=== PATIENT | female | born 1955 | race Caucasian/White ===

== ENCOUNTER → 2022-10-07 10:35 | Outpatient (CLI) | payer MEDICARE, BC, SELFPAY ==
--- NOTE | ~2022-10-07 | XR_ITS ---
EXAMINATION:XR cervical spine 4-5V DATE: 10/07/2022 11:27 INDICATION: Neck pain TECHNIQUE: AP, lateral in neutral, flexion, extension, lateral swimmers and odontoid views of the cer vical spine are provided. COMPARISON: MRI from today FINDINGS: There is 1 mm of retrolisthesis of C3 on C4 and 1 mm of anterolisthesis of C4 on C5. No hyp ermobility is noted with flexion or extension. The odontoid process is intact. No fracture is identif ied. The vertebral body heights are maintained. There is mild loss of intervertebral disc space heigh t at C5-6 and C6-7. There is multilevel moderate to severe facet and uncovertebral joint osteoarthrit is. Prevertebral soft tissues are normal. IMPRESSION: 1. Mild to moderate cervical spondylosis without acute findings. Reviewed, dictated and finalized at location L. SMISSION OPERATOR
--- NOTE | ~2022-10-07 | MR_ITS ---
MRI of the cervical spine Clinical History: Spondylosis Technique: Axial T2-weighted and gradient images, and sagittal T1-weighted, T2-weighted, and STIR yoel ges were acquired. Findings: There is no fracture or subluxation of the cervical spine. Vertebral bodies maintain normal height and alignment. No suspicious bone marrow signal abnormality seen. At C2-C3, there is no disc bulge or herniation. There is mild right facet arthropathy. There is proba ble mild right neural foraminal narrowing. Left neural foramen preserved. No spinal canal stenosis or cord compression. At C3-C4, there is minimal disc osteophyte complex. There is probable bilateral neural foraminal narr owing. No spinal canal stenosis or cord compression. At C4-C5, there is minimal disc bulge. There is probable mild bilateral neural foraminal narrowing. N o spinal canal stenosis or cord compression. At C5-C6, there is minimal disc bulge. There is probable bilateral neural foraminal narrowing without kavon canal stenosis or cord compression. At C6-C7, there is minimal disc bulge. No kavon spinal canal stenosis or cord compression. There is p robable bilateral neural foraminal narrowing. Paravertebral soft tissues are unremarkable. Impression: Mild spondylosis, with multilevel neural foraminal narrowing throughout the cervical spine, as detail ed above. Reviewed, dictated and finalized at location . AULIC PUNCH PRESS OPERATOR Impression: Mild spondylosis, with multilevel neural foraminal narrowing throughout the cer vical spine, as detailed above.
== END ==
PROVIDERS: PCP Internal Medicine Infectious Disease; Visit Provider Nurse Practitioner Adult Health
DX: M47.812 Spondylosis without myelopathy or radiculopathy, cervical region (principal); R27.0 Ataxia, unspecified
CPT/HCPCS: 72050; 72141

== ENCOUNTER 2023-05-16 11:55 | Outpatient (CLI) | payer MEDICARE, BC, SELFPAY ==
--- NOTE | ~2023-05-16 | XR_ITS ---
XR chest 2V 05/16/2023 13:11 Indication: Spondylosis without myelopathy Procedure: 2 view chest Comparison: No prior studies for comparison. Findings: There is a left shoulder arthroplasty. There are cholecystectomy clips. Moderate size hiata l hernia with air-fluid level. No focal air space disease, pulmonary edema, pleural effusion or suspe cted pneumothorax. Heart size normal. Impression: 1: No acute cardiopulmonary disease. Reviewed, dictated and finalized at location B. Impression: 1: No acute cardiopulmonary disease.
--- NOTE | 2023-05-16 12:31 | ECG_ITS ---
Measurements Intervals [place] Rate: 71 P: 46 CT: 198 QRS: -18 QRSD: 88 T: 28 QT: 396 QTc: 431 Interpretive Statements SINUS RHYTHM LOW QRS VOLTAGE IN PRECORDIAL LEADS POOR R WAVE PROGRESSION, ANTERIOR LEADS INFERIOR INFARCT, AGE INDETERMINATE BASELINE ARTIFACT- I, III, AVR, AVL, AVF ABNORMAL ECG NO PREVIOUS ECG AVAILABLE FOR COMPARISON Electronically Signed On 05-16-2023 13:46:45 CDT by Anuj Mcdonald D.O.
[2023-05-16 13:16] LABS: Hematocrit 37.3 % (37.0-47.0); Hemoglobin 11.3 g/dL (12.0-15.0); Mean Corpuscular HGB Conc 30.3 g/dl (32-36); Mean Corpuscular Hemoglobin 27.1 pg (26-34); Mean Corpuscular Volume 89.4 fl (80-100); Mean Platelet Volume 9.9 fl (7.4-10.4); Platelet Count Result 276 k/mm3 (150-375); Red Blood Count 4.17 M/mm3 (4.2-5.4); Red Cell Distribution Width 17.7 % (11.5-14.5); White Blood Count 6.4 K/mm3 (4.5-10.0)
[2023-05-16 13:20] LABS: Appearance Urine Cloudy (Clear); Bacteria Urine 4+ /hpf; Bilirubin Urine Negative (Negative); Blood Urine Negative (Negative); Color Urine Yellow (Yellow); Glucose Urine UA Negative (Negative); Ketones Urine Negative (Negative); Leukocyte Esterase Ur 1+ LEU/UL (Negative); Nitrate Urine Negative (Negative); Non Pathogenic Casts 0-2; Protein Urine Negative (Negative); RBC Urine 0-2 /hpf (0-2); Specific Grav Ur 1.016 (1.001-1.035); Squamous Epithelial Cell Urine None seen /hpf (Few); WBC Urine 21-50 /hpf; pH Urine 7.5 (5.0-9.0)
[2023-05-16 13:21] LABS: Add Urine Microscopic? YES
[2023-05-16 13:26] LABS: Anion Gap 2 mmol/L (8-16); Blood Urea Nitrogen 12 mg/dL (7-17); Calcium 9.3 mg/dL (8.4-10.2); Carbon Dioxide 38 mmol/L (22-30); Chloride 101 mmol/L (98-107); Estimated Glomerular Filt Rate > 60; Glucose 84 mg/dL (65-110); INR 0.9; Potassium 4.1 mmol/L (3.4-5.0); Prothrombin Time 12.5 Seconds (11.1-14.7); Sodium 141 mmol/L (137-145)
[2023-05-16 13:27] LABS: Partial Thromboplastin Time 25.3 SECONDS (22.3-36.8)
== END 2023-05-16 11:56 | disposition home or self-care (01) ==
LOC: ANHSURGERY 12:29
PROVIDERS: PCP Internal Medicine Infectious Disease; Visit Provider Neurological Surgery
DX: M47.812 Spondylosis without myelopathy or radiculopathy, cervical region (principal); Z01.818 Encounter for other preprocedural examination
CPT/HCPCS: 36415; 71046; 80048; 81001; 85027; 85610; 85730; 86850; 86900; 86901; 87086; 87088; 93005

== ENCOUNTER 2023-05-19 15:53 | Inpatient (IN) | payer MEDICARE, BC, SELFPAY ==
--- NOTE | 2023-05-13 14:08 | PC.NURSE ---
Report to the Outpatient Waiting Room, entrance under the green pavilion located off [facility], at time __1000 on date __05/19/23 . Planned Procedure Time: __1200 . Time changes happen often and if your time is changed the preop area will call you the afternoon before. - You and your visitor will be asked to self-screen and do not enter if you have any COVID symptoms. - A mask is optional within the hospital at this time. Patients may have clear liquids (water, carbonated beverages, clear teas, apple juice) until 3 hours prior to surgery with a maximum of 20 ounces. - No food from midnight until time of surgery - Infants may have breast milk until 4 hours before surgery, infant formula 6 hours prior to surgery. - Children will be allowed to drink immediately following surgery. If applicable, please bring a bottle or sippy cup to assist with drinking. Juice, water, soda, and popsicles are readily available. For infants on formula, please bring formula the day of surgery. Pacifiers are allowed. Take the following medications with a SIP of water the morning of surgery: ___LEVOTHYROXINE,VENLAFAXINE DO NOT STOP ANY OF YOUR OTHER PRESCRIPTION MEDICATIONS PRIOR TO SURGERY ?EXCEPT THE FOLLOWING Medications to discontinue per physician _PT STATES HOLD ASPIRIN 7 DAYS PRE OP PER DR WINN.LAST DOSE05/11/23. ALL VITAMINS AND SUPPLEMENTS 3 DAYS PRE OP.LAST DOSE 05/15/23 Please no make-up, nail ivorian, hairspray, perfume, deodorant, or body powder the day of surgery. No jewelry (including any body piercings) or valuables the day of surgery, leave them at home. Please take a shower or bath the night before, or the morning of, surgery with an antibacterial soap. Wear comfortable, loose fitting clothing. Children are encouraged to wear pajamas. - Jewelry must be removed prior to entering the operating room. Rings and piercings that are not removed may be cut off. - The hospital will not accept responsibility for valuables. - Please leave all valuables, including medications, at home the day of surgery. If you are going home after surgery, a licensed furniture mover driver must drive you home. - NO public transportation without another adult if you receive anesthesia. - We recommend that an adult stay with you for 24 hours following discharge. - We also recommend that you do not drive, make important decision, drink alcoholic beverages, or take any drugs that were not prescribed by your health care provider for at least 24 hours after your discharge time. For Pediatric surgeries, we recommend two adults accompany the child home. Follow any additional instructions given to you from your surgeon. If you or anyone in your household have experienced Covid symptoms in the past week, please notify your surgeon or the nurse liaison at the phone number below for possible testing. Telephone instructions given to PATIENT____and asked if any additional questions and then verbalized understanding. Patient advised to call surgeon office or pre surgery nurse liaison [phone] if any additional questions.
[2023-05-13 14:18] VITALS: BMI 30.9
[2023-05-19] VITALS (10 sets, daily range): BP systolic 135–168; BP diastolic 64–97; PULSE 75–113; RESP 10–18; TEMP 36.6–37.1; O2SAT 94–100; BMI 30.2
--- NOTE | ~2023-05-19 | XR_ITS ---
XR fluoroscopy no charge 05/19/2023 14:42 Indication: Right C6, C7 and T1 cervical laminectomy and foraminotomy TECHNIQUE: Fluoroscopy used during Right C6, C7 and T1 cervical laminectomy and foraminotomy perform ed by [Pratik Torres MD] on 05/19/2023. Fluoroscopy time is 9 seconds. with 2 fluoroscopic im ages captured. FINDINGS: Correlate with procedure note. IMPRESSION: Fluoroscopy used during Right C6, C7 and T1 cervical laminectomy and foraminotomy. Reviewed, dictated and finalized at location B. IMPRESSION: Fluoroscopy used during Right C6, C7 and T1 cervical laminectomy an d foraminotomy.
--- NOTE | 2023-05-19 08:05 | SUR.PREOP ---
0805- Notified Dr. Torres patient's urine culture preliminary growing gram negative organism. Per Dr. Torres OK to proceed with surgery.
[2023-05-19] MEDS: LACTATED RINGERS 1,000 ML 30 ML IV CONT ×2 (10:55→15:32)
--- NOTE | 2023-05-19 11:55 | WPDANESEPPF ---
Anes - Initial Pre Proc Eval Procedure: Operation Date: 05/19/23 12:00 Proposed Procedures p Right C6-7, C7-T1 Laminectomy, Foraminotomy, Posterior Lateral Instrumented Fusion - Pratik Torres MD Date/Time: 05/19/23 11:55 Surgeon: Pratik Torres MD Pre Op Diagnosis: right C6-7, C7-T1 foraminal stenosis Patient Data Age: 68 Gender: F Height: 1.63 m Weight: 79.9 kg Last Vital Signs Temp 36.9 C 05/19/23 10:25 Pulse 75 05/19/23 10:25 Resp 16 05/19/23 10:25 BP 139/69 05/19/23 10:25 Pulse Ox 100 05/19/23 10:25 O2 Del Method Room Air 05/19/23 10:25 Allergies Allergy/AdvReac Type Severity Reaction Status Date / Time adhesive tape Allergy Severe Blister Verified 05/19/23 10:41 meperidine AdvReac Severe SEVERE Verified 05/19/23 10:41 HEADACHE AND VOMITING ISSUES Home Medications Medication Instructions Recorded Confirmed Type ascorbic acid (vitamin C) 1,000 mg 1 g PO DAILY 05/13/23 05/19/23 History tablet aspirin 81 mg tablet,delayed 81 mg PO DAILY 05/13/23 05/19/23 History release (Adult Low Dose Aspirin) baclofen 10 mg tablet 10 mg PO PRN PRN Muscle Pain 05/13/23 05/13/23 History ferrous sulfate 325 mg (65 mg 65 mg PO DAILY 05/13/23 05/19/23 History iron) tablet garlic 300 mg PO DAILY 05/13/23 05/19/23 History levothyroxine 150 mcg tablet 150 mcg PO DAILY 05/13/23 05/19/23 History magnesium 200 mg tablet 200 mg PO DAILY 05/13/23 05/19/23 History melatonin 10 mg tablet 10 mg PO HS PRN Insomnia 05/13/23 05/13/23 History omeprazole magnesium 20 mg 20 mg PO PRN PRN Heartburn 05/13/23 05/13/23 History tablet,delayed release (Prilosec OTC) oxycodone-acetaminophen 7.5 mg-325 1 tablet PO PRN PRN Pain 05/13/23 05/13/23 History mg tablet venlafaxine 37.5 mg 37.5 mg PO QNOON 05/13/23 05/19/23 History capsule,extended release 24 hr zinc 50 mg capsule 50 mg PO DAILY 05/13/23 05/19/23 History Patient hx anesthesia problems: none Family hx anesthesia problems: none Results Review: All pre-operative results and documents have been reviewed as part of the pre-operative evaluation. FORMERLY [facility], [facility] Past Medical History Medical History Cervical spondylosis GERD (gastroesophageal reflux disease) Thyroid disease Surgical History Surgical History History of lumbar fusion S/P spinal surgery Family History Family History Other Cancer Social History Social History Smoking status: Never smoker Alcohol intake: never Substance use: never Substance use type: does not use Lack of Transportation: No Lack of Food: Never True Current Housing: I Have Housing Concerned About Future Housing: No Difficulty Paying Gas/Electric Bills: No Difficulty Paying for Meds: No Currently Unemployed: No Education: Decline to Answer Difficulty w/ Childcare or Family Care: No Living arrangements: with family Occupation/Education: occupation Gender identity (if verbalized by the patient): Female Spiritual care concerns: No Anes - Eval Final PreProcedure Day of Procedure 05/19/23 11:55 Patient weight: obese Heart: regular rate and rhythm Lungs: clear to auscultation Airway: Mallampati scale class II Neurological: alert and oriented Last oral intake: >/= 8 hours ASA classification: III Emergent: no Anesthetic plan: proceed Anesthesia type and monitoring: general ETT and standard monitoring Results Review: All pre-operative results and documents have been reviewed as part of the pre-operative evaluation. Informed Consent: The patient's anesthetic plan and its attendant risks and benefits were discussed with the patient/family/POA. Questions were solicited and answers provided to the satisfaction of the patient/fami
--- NOTE | 2023-05-19 12:10 | PM.IMHP ---
H&P: HPI History of Present Illness Date/Time: 05/19/23 12:10 Chief Complaint: Neck and arm pain Narrative: Vijaya is a 60-year-old female with neck and arm pain related to a C8 radiculopathy who presents now for decompression fusion from posterior approach. She has not changed appreciably since we last saw her. She does not have any specific muscle group weakness or dermatomal numbness. She is not having bowel or bladder Review of Systems Review of Systems: Patient denies shortness of breath, cough, fever, chills, nausea, vomiting, weight loss, weight gain, chest pain, dysuria. She has neck and arm pain as above. Review of systems is otherwise negative on 12 systems except as noted elsewhere. [facility] Past Medical History Medical History Cervical spondylosis GERD (gastroesophageal reflux disease) Thyroid disease Surgical History Surgical History History of lumbar fusion S/P spinal surgery Family History Family History Other Cancer Social History Social History Smoking status: Never smoker Alcohol intake: never Substance use: never Substance use type: does not use Lack of Transportation: No Lack of Food: Never True Current Housing: I Have Housing Concerned About Future Housing: No Difficulty Paying Gas/Electric Bills: No Difficulty Paying for Meds: No Currently Unemployed: No Education: Decline to Answer Difficulty w/ Childcare or Family Care: No Living arrangements: with family Occupation/Education: occupation Gender identity (if verbalized by the patient): Female Spiritual care concerns: No Meds Home Medications and Allergies Home Medications Medication Instructions Recorded Confirmed Type ascorbic acid (vitamin C) 1,000 mg 1 g PO DAILY 05/13/23 05/19/23 History tablet aspirin 81 mg tablet,delayed 81 mg PO DAILY 05/13/23 05/19/23 History release (Adult Low Dose Aspirin) baclofen 10 mg tablet 10 mg PO PRN PRN Muscle Pain 05/13/23 05/13/23 History ferrous sulfate 325 mg (65 mg 65 mg PO DAILY 05/13/23 05/19/23 History iron) tablet garlic 300 mg PO DAILY 05/13/23 05/19/23 History levothyroxine 150 mcg tablet 150 mcg PO DAILY 05/13/23 05/19/23 History magnesium 200 mg tablet 200 mg PO DAILY 05/13/23 05/19/23 History melatonin 10 mg tablet 10 mg PO HS PRN Insomnia 05/13/23 05/13/23 History omeprazole magnesium 20 mg 20 mg PO PRN PRN Heartburn 05/13/23 05/13/23 History tablet,delayed release (Prilosec OTC) oxycodone-acetaminophen 7.5 mg-325 1 tablet PO PRN PRN Pain 05/13/23 05/13/23 History mg tablet venlafaxine 37.5 mg 37.5 mg PO QNOON 05/13/23 05/19/23 History capsule,extended release 24 hr zinc 50 mg capsule 50 mg PO DAILY 05/13/23 05/19/23 History Allergies Allergy/AdvReac Type Severity Reaction Status Date / Time adhesive tape Allergy Severe Blister Verified 05/19/23 10:41 meperidine AdvReac Severe SEVERE Verified 05/19/23 10:41 HEADACHE AND VOMITING ISSUES Vital Signs Vital Signs - 24 hr 05/19/23 10:25 Temperature 98.5 F Pulse Rate 75 Respiratory Rate 16 Blood Pressure 139/69 Pulse Oximetry 100 Oxygen Delivery Room Air Exam Narrative: Strength is 5/5 in all muscle groups of the bilateral upper extremities. Sensation is intact to light touch throughout the upper extremities. Regular rate and rhythm Breathing is nonlabored Assessment and Plan Assessment and plan (1) Cervical spondylosis: Code(s): M47.812 - Spondylosis without myelopathy or radiculopathy, cervical region Status: Acute Assessment and Plan: Vijaya is a 60-year-old female who has C7-T1 foraminal stenosis and similar things happening at C6-7 presents now for C6-T1 laminectomy
--- NOTE | 2023-05-19 12:12 | WPDHPUPDATE1 ---
History and Physical Update Update Date/Time: 05/19/23 12:12 History and Physical has been reviewed, including an updated exam of the patient. There are NO changes in the patient's condition. Risks, benefits, and alternatives have been discussed and questions answered. Patient agrees to proceed with procedure.
[2023-05-19] MEDS: ceFAZolin 2 GM/D5W 50 ML 2 GM/50 ML BAG IVPB (12:37)
[2023-05-19] MEDS: LIDO 1%/EPINEPHRINE 1:100,000 50 ML VIAL 10 ML INFILTRATE (13:19)
--- NOTE | 2023-05-19 15:10 | W.PM.PROC2 ---
Procedure Note - Detailed Date of Procedure 05/19/23 Pre-op Diagnosis right C6-7, C7-T1 foraminal stenosis Post-op Diagnosis Same Procedure Performed C6-7 and C7-T1 laminectomy and bilateral foraminotomy, C6-T1 lateral mass instrument infusion Surgeon Pratik Torres MD Anesthesia General Description of Procedure patient was brought to the operating room in the supine position, was sedated, intubated and placed under general anesthesia in routine fashion. She was then turned into the prone position with her head in a Benjamin horseshoe head of music on gel rolls. The area of operation on the back of her neck was examined, marked for incision, prepped and draped in routine sterile fashion. Incision was marked over the C6 through T1 spinous processes in the midline. This area was injected with 0.5% lidocaine with 1 to [id number] epinephrine. Intravenous antibiotics given prior to incision. Incision was made with a 10 blade scalpel down to the cervical fascia. A subperiosteal dissection of the muscle soft tissue away from the spinous process and lamina the C6-T1 was performed with a subperiosteal elevator and Bovie cautery. A verifying x-rays obtained to verify the level of operation. The C6 and C7 lamina and spinous processes removed using a Midas Ortiz drill to cut a transient in the lamina. The interspinous ligament above and below was cut with a Leksell rongeur and Kerrison punches. The lamina spinous process were then passed off the field. These were stripped free of soft tissue and more slice for later use as on lay autograft. At C6-7 and C7-T1 bilaterally Midas Ortiz drill was used to perform a limited bony foraminotomy. Kerrison punches, curved curettes were used to define a plane with the nerve and removed additional bone ligament overlying the nerve out the foramen on each side each level. This was done until a nerve hook the placed out each foramen to confirm lack of compression. Pedicle screws were then placed at T1 by observing and palpating the pedicle ankle was made and spear tic the process above the pedicle using a Midas Ortiz drill. The pedicle was then cannulated with pedicle probe, check continuity with a ball probe, tapped with a 3.5 mm tap in a 26 x 4 mm screw was placed in the each T1 pedicle. At C6 lateral mass screw was placed by piercing the cortex just below it and medial to the midpoint of the facet. A drill was then used to cut a whole 12 mm long and trajectory 20? cephalad 20? lateral. A 12 mm screw was then placed into each C6 lateral mass. 40 mm rods placed between the C6 screw in the T1 screw. Distraction was placed over the screws and and they were tight and then a distracted position to expand the foramina. These were definitively tied with a torque and anti torque device. Lateral masses were decorticated using a Midas Ortiz drill. Local autograft bone was packed against these decorticated masses. This was done after the wound was copiously irrigated with bacitracin irrigation all bleeding stopped with bipolar Bovie cautery and Gelfoam thrombin powder. A medial heel back drain was left in the sub fascial position buried after the inferior right of the incision. Wound was then closed in layered fashion with 2 0 Vicryl interrupted sutures in the cervical fascia and scarf is layer. Three 0 Vicryl buried interrupted sutures were placed in the dermis and skin was closed with a running for Monocryl subcuticular stitch and dressed with Dermabond. Patient was allowed to come out from general anesthesia in the operating room was taken to the recovery room in stable condition. There were no immediate complications of this operation. All counts were reported correct and case. Blood loss was 150 cc. The patient was neurologically at her baseline postoperatively. Estimated Blood Loss 150 IV Fluids 1,000 Drains Yes Complications None Condition Stable Disposition PACU [facility] Surgery - Charge Forward: Surg
[2023-05-19] MEDS: fentaNYL CITRATE INJ (*CRX) 100 MCG/2 ML VIAL 25 MCG IV PUSH ×8 (15:52→16:26)
[2023-05-19] MEDS: HYDROmorphone HCL INJ (*CRX) 1 MG/ML SYR 0.5 MG IV PUSH ×6 (16:18→17:01)
[2023-05-19] MEDS: KCL 20 MEQ/D5/0.45% SOD CHL 1,000 ML 100 ML IV CONT (18:02)
[2023-05-19] MEDS: MORPHINE SULFATE (*CRX) 2 MG/ML INJ IV PUSH ×2 (18:12→21:31)
[2023-05-19] MEDS: ceFAZolin 1 GM/NS 50 ML 1 GM/50 ML BAG IVPB (20:26)
[2023-05-19] MEDS: CYCLOBENZAPRINE HCL 10 MG TABLET PO (20:27)
[2023-05-19] MEDS: DOCUSATE SODIUM 100 MG CAPSULE PO (20:27)
[2023-05-20] MEDS: HYDROcodone/acetaminophen (*CRX) 10-325 MG TABLET 1 TAB PO ×4 (00:25→17:37)
[2023-05-20 02:08] VITALS: BP 131/57; PULSE 98; RESP 14; TEMP 36.6; O2SAT 99
[2023-05-20] MEDS: ceFAZolin 1 GM/NS 50 ML 1 GM/50 ML BAG IVPB ×2 (03:41→13:18)
[2023-05-20] MEDS: KCL 20 MEQ/D5/0.45% SOD CHL 1,000 ML 100 ML IV CONT (03:41)
[2023-05-20 06:08] VITALS: BP 115/39; PULSE 94; RESP 16; TEMP 36.1; O2SAT 95
[2023-05-20] MEDS: CYCLOBENZAPRINE HCL 10 MG TABLET PO (07:49)
[2023-05-20 08:00] VITALS: BP 141/76; PULSE 91; RESP 12; TEMP 36.2; O2SAT 98
--- NOTE | 2023-05-20 08:11 | WPDANESPN ---
Anes - Prog Note Post-Op Date/Time: 05/20/23 08:11 Cardiovascular status: normal Respiratory status: normal Airway patency: baseline Mental status: baseline Post-Op hydration status: normal Vital Signs: Last Vital Signs Temp 36.1 C L 05/20/23 06:08 Pulse 94 05/20/23 06:08 Resp 16 05/20/23 06:08 BP 115/39 L 05/20/23 06:08 Pulse Ox 95 05/20/23 06:08 O2 Del Method Room Air 05/19/23 20:05 O2 Flow Rate 2 05/19/23 17:10 Pain Score (VAS): no complaints I/O: Intake & Output 05/19/23 05/20/23 05/20/23 23:59 07:59 15:59 Intake Total 850 1000 Output Total 820 Balance 30 1000 Post-procedural complaints: none Patient Feedback: Patient satisfied with anesthetic care.
[2023-05-20] MEDS: DOCUSATE SODIUM 100 MG CAPSULE PO (08:57)
[2023-05-20 12:15] VITALS: BP 141/77; PULSE 109; RESP 14; TEMP 36.7; O2SAT 97
--- NOTE | 2023-05-20 13:02 | PC.NURSE ---
Provider office called regarding pt status. MD in surgery then to floor to do rounds per office staff.
--- NOTE | 2023-06-27 21:13 | PM.DS ---
DS: Admitting Diagnosis Discharge Date 05/20/23 Admitting Diagnosis C6-7 and C7-T1 bilateral foraminal stenosis DS: Discharge Diagnosis Discharge Diagnosis (1) Cervical spondylosis: Code(s): M47.812 - Spondylosis without myelopathy or radiculopathy, cervical region Status: Acute (2) Foraminal stenosis of cervical region: Code(s): M48.02 - Spinal stenosis, cervical region Status: Acute DS: Summary Hospital Course Hospital Course: patient was taken to the operating room on 05/19/2023 with the aforementioned C6-7 and C7-T1 laminectomy and bilateral foraminotomy, C6-T1 lateral mass instrument infusion was performed without complication. The patient went to the floor postoperatively. Her drain was removed on postoperative day 1. Also on postoperative 1 physical and occupational therapy cleared her. At the time of her discharge she was eating, ambulating, emptying her bladder and her pain was under control with by mouth pain medicine. Her wound remained clean dry and intact. She was afebrile stable vitals. She was therefore allowed to be discharged home. Time Spent with Patient Time attestation: Total time spent providing and/or coordinating discharge services: Discharge Plan Discharge Attending physician on discharge: Pratik Torres Consulting providers: Silvio Jones Discharging Clinician: Pratik Torres Anticipated Discharge Date/Time: 05/20/23 17:38 Patient Disposition: Home, Self-Care Activity: may shower and other - see discharge instructions Diet: as tolerated Wound Care Instructions: follow printed instructions Discharge Instructions: INSTRUCTIONS AFTER YOUR CERVICAL FUSION (ANTERIOR OR POSTERIOR)/CERVICAL DISC REPLACEMENT (ARTHRODESIS) Incisions may be closed with either: Steri-strip tapes (let them wear off on their own). Surgical glue (let it peel off on its own). Sutures or quang (call the office for an appointment to have these removed). Keep the incision dry for the first three days after surgery. Never apply ointments or lotions to the incision. The incision should be checked daily. Notify the office if there is drainage, redness, or if you have fever with a temperature of over 100 degrees. After the third postop day, it is okay to shower. Let soap and water run over your incision. No soaking in a tub, hot tub, or pool for at least one month. You are encouraged to walk as much as comfortable, with assistance as needed. For example, it may be beneficial to walk short distances hourly during the waking hours and gradually increase walking during your recovery period. Fatigue can be common. If a collar has been instructed by your physician, follow the instructions you were given. Please call the office for clarification if needed. Avoid any bending or heavy lifting. You have an [id number]-ma-cyc-pound lift restriction until further advised by your physician (A gallon of milk weighs eight pounds). Sometimes a bone growth stimulator will be used after surgery. Instructions for the use of the stimulator will come from your fraud representative. Make frequent position changes, avoiding long periods of sitting. Try not to sit more than 30 minutes at a time. You may engage in sexual activity in two weeks as tolerated. No housework, especially vacuuming, making beds, or doing laundry until seen in the office. You may walk stairs carefully. Minimize car rides for two weeks. Driving can usually be resumed after three to four weeks; however, you may not drive at that time if still taking pain medications, or if you are still wearing your hard collar. Once you are discharged from the hospital, please call the office to set up your postop appointment. The physician may order pain medication and/or muscle relaxers. As time goes by, you should require less of these. Always take your medication as ordered, and only if needed. If you take more than prescribed, it will not be refilled
== END 2023-05-20 18:00 | disposition home or self-care (01) | DRG 473 ==
LOC: ANH3MEDSUR 17:22 → ANHSURGERY 05-20 11:51 → ANH3MEDSUR 05-20 11:51
PROVIDERS: Admitting Provider Neurological Surgery; PCP Internal Medicine Infectious Disease; Visit Provider Neurological Surgery
PROC: 0RG4071 Fusion of Cervicothoracic Vertebral Joint with Autologous Tissue Substitute, Posterior Approach, Posterior Column, Open Approach (ICD-10-PCS; CPT 63030; principal; 2023-05-19 12:00)
DX: M48.02 Spinal stenosis, cervical region (principal); M47.812 Spondylosis without myelopathy or radiculopathy, cervical region; K21.9 Gastro-esophageal reflux disease without esophagitis; E66.9 Obesity, unspecified; Z68.30 Body mass index [BMI] 30.0-30.9, adult
CPT/HCPCS: 36415; 71046; 80048; 81001; 85027; 85610; 85730; 86850; 86900; 86901; 87086; 87088; 93005; 97161; 97165; 97535; 99199; A9270; C1713; J0690; J1100; J1170; J2250; J2270; J2371; J2405; J2704; J3010; J3480; J7120

== ENCOUNTER 2023-12-12 10:08 | Outpatient (CLI) | payer MEDICARE, BC, SELFPAY ==
--- NOTE | ~2023-12-12 | XR_ITS ---
EXAM: XR_[id number]_CR DATE: 12/12/2023 10:28 HISTORY: M47.812 - PAIN WORSE RT SIDE SINCE SURGERY 05/2023 . COMPARISON: 10/07/2022, report only. FINDINGS: Uncomplicated appearing fusion hardware spanning C6-T1. Craniocervical association and noah antoaxial joint are aligned. No prevertebral soft tissue swelling. 2 mm retrolisthesis at C3-4. 2 mm anterolisthesis at C4-5 and C5-6. Vertebral body heights are maintained. Multilevel mild and moderate disc space narrowing and mild marginal osteophytosis. Multilevel moderate facet hypertrophy and scle rosis. Partially visualized shoulder arthroplasty hardware. IMPRESSION: Uncomplicated appearing posterior fusion hardware spanning C6-T1. Multilevel grade 1 list heses, presumably on a degenerative basis. Multilevel mild-moderate degenerative disc disease. Multil evel moderate facet arthropathy. Reviewed, dictated and finalized at location [facility]. IMPRESSION: Uncomplicated appearing posterior fusion hardware spanning C6-T1. M ultilevel grade 1 listheses, presumably on a degenerative basis. Multilevel mil d-moderate degenerative disc disease. Multilevel moderate facet arthropathy.
== END 2023-12-12 10:09 | disposition home or self-care (01) ==
LOC: ANHIMG 10:13
PROVIDERS: PCP Internal Medicine Infectious Disease; Visit Provider Neurological Surgery
DX: M47.812 Spondylosis without myelopathy or radiculopathy, cervical region (principal); Z98.1 Arthrodesis status; M50.30 Other cervical disc degeneration, unspecified cervical region; M12.88 Other specific arthropathies, not elsewhere classified, other specified site
CPT/HCPCS: 72040

== ENCOUNTER 2024-01-27 09:51 | Outpatient (CLI) | payer MEDICARE, BC, SELFPAY ==
--- NOTE | ~2024-01-27 | CT_ITS ---
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 TECHNIQUE: Computed tomography (CT) of the cervical spine was performed without intravenous contrast. Automated exposure control and iterative reconstruction technique were employed. The dose-length pro duct was 265.45 mGy-cm. COMPARISON: Cervical spine radiograph 12/12/2023, MRI 10/07/2022 FINDINGS: There is 3 degrees levocurvature of cervical spine. There is 2 mm anterolisthesis of C4 on C5 and C5 on C6. There is mild chronic anterior wedging of C6, C7, and T1 vertebral bodies. There is mildly decreased disc height at C3-C4, moderately decreased disc height at C4-C5, severely decreased disc height at C5-C6, and moderately decreased disc height at C6-C7 and C7-T1. There are changes of p osterior fusion procedure with lateral mass screws in C6 and pedicle screws in T1. There are laminect omies at C6 and C7. The following disc levels are specifically discussed: C2-C3: There is severe right and mild left uncovertebral joint osteoarthritis. There is severe bilate ral facet joint osteoarthritis. There is mild right neural foraminal stenosis. There is no central ca nal stenosis. C3-C4: There is severe bilateral uncovertebral joint osteoarthritis. There is severe bilateral facet joint osteoarthritis. There is moderate right and mild left neural foraminal stenosis. There is mild central canal stenosis. C4-C5: There is severe bilateral uncovertebral joint osteoarthritis. There is severe left facet joint osteoarthritis. There is ankylosis of right facet joint with severe hypertrophy. There is mild bilat eral neural foraminal stenosis. There is no central canal stenosis. C5-C6: There is severe bilateral uncovertebral joint osteoarthritis. There is severe bilateral facet joint osteoarthritis. There is mild bilateral neural foraminal stenosis. There is mild central canal stenosis. C6-C7: There is severe bilateral uncovertebral joint osteoarthritis. There is severe left facet joint osteoarthritis. There is ankylosis of right facet joints with mild hypertrophy. There is mild bilate ral neural foraminal stenosis. There is mild central canal stenosis with posterior decompression. C7-T1: There is moderate bilateral uncovertebral joint osteoarthritis. There is severe right facet dinah int osteoarthritis. There is ankylosis of left facet joint with severe hypertrophy. There is mild jessica ateral neural foraminal stenosis. There is no central canal stenosis. IMPRESSION: 1. Severe cervical spondylosis. 2. Posterior fusion procedure from C6 to T1. Reviewed, dictated and finalized at location A.
== END 2024-01-27 09:52 ==
LOC: GOSHIMG 09:51
PROVIDERS: PCP Internal Medicine Infectious Disease; Visit Provider Neurological Surgery
DX: M47.812 Spondylosis without myelopathy or radiculopathy, cervical region (principal); Z98.1 Arthrodesis status
CPT/HCPCS: 72125

== ENCOUNTER 2024-10-03 09:01 | Outpatient (CLI) | payer MEDICARE, BC, SELFPAY ==
--- NOTE | ~2024-10-03 | MR_ITS ---
EXAMINATION: MR cervical spine wo con DATE: 10/03/2024 09:39 INDICATION: Cervical spinal stenosis TECHNIQUE: Magnetic resonance imaging (MRI) of the cervical spine was performed without intravenous c ontrast. Sequences included sagittal T2-weighted FSE, sagittal T2-weighted FS FSE, sagittal T1-weight ed FSE, axial MERGE and axial T2-weighted FSE. COMPARISON: Cervical spine CT dated 01/27/2024 FINDINGS: Reversal of the normal cervical lordosis in the lower cervical spine. 2 mm anterolisthesis C4 on C5 a nd C5 on C6. C6 and C7 laminectomies and C6-T1 posterior spinal fusion with bilateral vertical rods w ith lateral mass screws at C6 and pedicle screws at T1. Severe osteoarthritis at the atlantoaxial art iculation.Unchanged minimal anterior wedging at C6, C7 on T1. Bone marrow signal intensity is normal . Total disc height loss moderate severity at C6-C7 and C7-T1, mild to moderate at C5-C6 and mild at C4-C5. Cord signal intensity is normal. Postoperative scarring in the posterior lower neck at the sit e of the prior laminectomies. The visualized cervical soft tissues are otherwise unremarkable. The fo llowing disc levels are specifically discussed: C2-C3: The disc does not extend beyond the endplate margin. There is marked left and moderate right u ncovertebral joint osteoarthritis. There is severe bilateral facet joint osteoarthritis. There is mil d right neural foraminal stenosis. There is no central canal stenosis. C3-C4: Disc is bulging. There is severe bilateral uncovertebral joint osteoarthritis. There is severe bilateral facet joint osteoarthritis. There is moderate left and moderate to severe right neural for aminal stenosis. There is mild central canal stenosis. C4-C5: The disc does not extend beyond the more posterior C5 endplate margin. There is moderate bilat eral uncovertebral joint osteoarthritis. There is severe bilateral facet joint osteoarthritis with se condary osseous fusion across the right facet joint. There is mild left and moderate right neural for aminal stenosis. There is no central canal stenosis. C5-C6: The disc does not extend beyond the more posterior C6 endplate margin. There is severe bilater al uncovertebral joint osteoarthritis. There is severe bilateral facet joint osteoarthritis. There is moderate bilateral neural foraminal stenosis. There is mild central canal stenosis. C6-C7: Disc is mildly bulging. There is severe bilateral uncovertebral osteoarthritis. There is poste rior decompression. Posterior spinal fusion procedure with metallic magnetic field artifact partially obscuring the hypertrophic change at the facet joints. There is mild bilateral neural foraminal sten osis. There is no central canal stenosis. C7-T1: The disc does not extend beyond the endplate margin. There is moderate bilateral uncovertebral joint osteoarthritis. There is bilateral facet joints are fused. There is posterior decompression.. There is mild right and and mild to moderate left neural foraminal stenosis. There is no central sravanthi l stenosis. IMPRESSION: 1. Moderate to severe cervical spondylosis with C6-C7 laminectomies and instrumented C6-T1 posterior spinal fusion. Reviewed, dictated and finalized at location B. [facility] IMPRESSION: 1. Moderate to severe cervical spondylosis with C6-C7 laminectomies and instrum ented C6-T1 posterior spinal fusion.
== END 2024-10-03 09:02 | disposition home or self-care (01) ==
LOC: GOSHIMG 09:01
PROVIDERS: PCP Internal Medicine Infectious Disease; Visit Provider Neurological Surgery
DX: M48.02 Spinal stenosis, cervical region (principal); M47.812 Spondylosis without myelopathy or radiculopathy, cervical region; Z98.890 Other specified postprocedural states; Z98.1 Arthrodesis status
CPT/HCPCS: 72141

== ENCOUNTER 2024-11-15 09:40 | Outpatient (CLI) | payer MEDICARE, BC, SELFPAY ==
--- NOTE | ~2024-11-15 | MR_ITS ---
MRI of the lumbar spine Clinical History: Arthrodesis Technique: Axial T2-weighted images, and sagittal T1-weighted, T2-weighted, and STIR images were acqu ired. Findings: There is posterior and interbody fusion from L1 through L4. There is anterior and interbody fusion from L4 through S1. There is prior posterior decompression from L1 through L5, with left-side d hemilaminectomy from L1 through L3, and right-sided hemilaminectomies at L4 and L5. No acute fractu re or subluxation evident. No acute marrow signal abnormality evident. At L1-L2, there is no disc bulge or herniation. No canal stenosis or definite neural foraminal narrow ing. At L2-L3, there is no disc bulge or herniation. No canal stenosis or definite neural foraminal narrow ing. At L3-L4, there is no disc bulge or herniation. No canal stenosis or definite neural foraminal narrow ing. At L4-L5, there is no disc bulge or herniation. No canal stenosis. Possible mild bilateral neural for aminal narrowing. At L5-S1, there is no disc bulge or herniation. No canal stenosis. Probable mild right neural foramin al narrowing. Left neural foramen preserved. No unexpected paravertebral soft tissue findings identified. Impression: Extensive anterior and posterior arthrodesis from L1 through S1, as detailed above, with associated m ultilevel laminectomies. Mild neural foraminal narrowing at L4-L5 and L5-S1, as above. Reviewed, dictated and finalized at [facility]. Impression: Extensive anterior and posterior arthrodesis from L1 through S1, as detailed ab [place], with associated multilevel laminectomies. Mild neural foraminal narrowing at L4-L5 and L5-S1, as above.
== END 2024-11-15 09:41 | disposition home or self-care (01) ==
LOC: GOSHIMG 09:41
PROVIDERS: PCP Pain Medicine Pain Medicine; Visit Provider Neurological Surgery
DX: Z98.1 Arthrodesis status (principal)
CPT/HCPCS: 72148